=== PATIENT | female | born 1940 | race Caucasian/White ===

== ENCOUNTER 2021-05-22 09:18 | Observation (INO) | payer MEDICARE, BC ==
[2021-05-22] MEDS ORDERED: Sodium Chloride 0.9% 10 ML Syringe FLUSH ONE (10:33)
[2021-05-22] MEDS ORDERED: Iopamidol 755 Mg/ML 100 ML Bottle IV SCH (10:45)
[2021-05-22] MEDS ORDERED: Sodium Chloride 0.9% 80 ML IV SCH (10:45)
--- NOTE | 2021-05-22 11:14 | CT ---
Head wo Cont CLINICAL HISTORY: Stroke COMPARISON: None TECHNIQUE: Transverse scans were obtained from the base of the skull through the vertex without IV contrast on a multislice, multidetector CT scanner. Auto dosage reduction and iterative reconstruction techniques employed. FINDINGS: No focal abnormal parenchymal density is identified. There is no mass effect, hemorrhage, or extraaxial collection. The basal cisterns and sulci over the convexities are prominent. The ventricles are normal for age. IMPRESSION: Age-related atrophy No acute intracranial findings
--- NOTE | 2021-05-22 12:02 | EDM.PDOC ---
ED HPI GENERAL MEDICAL PROBLEM - General Chief Complaint: Neuro Symptoms/Deficits Stated Complaint: STROKE SYMPTOMS Time Seen by Provider: 05/22/21 09:30 Source of Information: Reports: Patient, Family - History of Present Illness INITIAL COMMENTS - FREE TEXT/NARRATIVE: This is a 81-year-old female with limited past medical history who presented concerns of right-sided weakness. She reports that approximately 1 hour prior to ED arrival she had sudden onset feeling of generally being unwell, some tingling on the right side, and noted weakness in the right leg. She sat down for few minutes after the symptoms started and then reports that she had difficulty standing and walking again due to weakness in the leg. She was at a cabin with her family when this occurred, they brought her into the emergency room. There was no noted speech changes. At the time of my evaluation patient is feeling back to her baseline and denies any weakness or paresthesias. She has no headache. No blood thinner use. No history of stroke. No known A. fib. - Related Data Allergies Allergy/AdvReac Type Severity Reaction Status Date / Time No Known Allergies Allergy Verified 05/22/21 09:39 Home Meds: Home Meds Albuterol [Ventolin HFA] 8 gm IH ASDIRECTED 05/22/21 [History] Amatesia 0 cap .ROUTE BID 05/22/21 [History] Levothyroxine Sodium [Synthroid] 125 mcg PO DAILY 05/22/21 [History] Magnesium Oxide [Magnesium] 400 mg PO DAILY 05/22/21 [History] amLODIPine Besylate [Norvasc] 2.5 mg PO DAILY 05/22/21 [History] atorvaSTATin [Lipitor] 20 mg PO BEDTIME 05/22/21 [History] lisinopriL [Lisinopril] 20 mg PO DAILY 05/22/21 [History] Past Medical History HEENT History: Reports: None Cardiovascular History: Reports: Hypertension Respiratory History: Reports: Asthma Gastrointestinal History: Reports: Chronic Constipation, Irritable Bowel Syndrome Neurological History: Reports: None Psychiatric History: Reports: None Endocrine/Metabolic History: Reports: Hypothyroidism Hematologic History: Reports: None Immunologic History: Reports: None Oncologic (Cancer) History: Reports: None Dermatologic History: Reports: None - Infectious Disease History Infectious Disease History: Reports: Chicken Pox, Pertussis (Whooping Cough), Shingles - Past Surgical History HEENT Surgical History: Reports: None GI Surgical History: Reports: Hernia Repair/Other Female Surgical History: Reports: Hysterectomy Social & Family History - Tobacco Use Tobacco Use Status *Q: Former Tobacco User Used Tobacco, but Quit: Yes Month/Year Tobacco Last Used: 45 years - Caffeine Use Caffeine Use: Reports: None - Recreational Drug Use Recreational Drug Use: No ED ROS GENERAL - Review of Systems Review Of Systems: See Below Constitutional: Reports: No Symptoms HEENT: Reports: No Symptoms Respiratory: Reports: No Symptoms Cardiovascular: Reports: No Symptoms Endocrine: Reports: No Symptoms GI/Abdominal: Reports: No Symptoms : Reports: No Symptoms Musculoskeletal: Reports: No Symptoms Skin: Reports: No Symptoms Neurological: Reports: Numbness, Difficulty Walking, Weakness Psychiatric: Reports: No Symptoms Hematologic/Lymphatic: Reports: No Symptoms Immunologic: Reports: No Symptoms ED EXAM, NEURO - Physical Exam Exam: See Below Exam Limited By: No Limitations General Appearance: Alert, No Apparent Distress Ears: Normal External Exam Nose: Normal Inspection Throat/Mouth: Normal Inspection Head Exam: Atraumatic Neck: Normal Inspection Respiratory/Chest: No Respiratory Distress, Lungs Clear Cardiovascular: Regular Rate, Rhythm GI/Abdominal: Soft, Non-Tender Neurological: Alert, Normal Mood/Affect, CN II-XII Intact, Oriented x 3, Other (Speech is fluid. No dysarthria. Cranial nerves II through XII intact. No pronator drift. Finger-nose testing is normal. No lower extremity drift with n ormal strength. Sensation to fine touch is intact throughout the extremities. NIH stroke scale 0) Back Exam: Normal Inspection Extremities: Normal Inspection Psychiatric: Normal Affect, Normal Mood Skin Exam: Warm, Dry #1 Interpretation Rhythm: NSR Hammond: Normal ST-T: Normal QT: Normal Course - Vital Signs Last Recorded V/S: Last Vital Signs Temp 36.6 C 05/22/21 09:45 Pulse 68 05/22/21 11:24 Resp 16 05/22/21 09:45 BP 145/82 H 05/22/21 12:24 Pulse Ox 95 05/22/21 11:24 - Orders/Labs/Meds Orders: Active Orders 24 hr Category Date Time Status Brain wo Cont [MR] Stat Exams 05/22/21 12:46 Ordered EKG 12 Lead [EK] Routine Ther 05/22/21 09:32 Ordered Labs: Laboratory Tests 05/22/21 05/22/21 Range/Units 09:43 09:43 WBC 5.1 (4.5-11.0) K/uL RBC 4.73 (3.30-5.50) M/uL Hgb 14.4 (12.0-15.0) g/dL Hct 45.1 (36.0-48.0) % MCV 95 (80-98) fL MCH 30 (27-31) pg MCHC 32 (32-36) % Plt Count 287 (150-400) K/uL Sodium 137 L (140-148) mmol/L Potassium 4.3 (3.6-5.2) mmol/L Chloride 100 (100-108) mmol/L Carbon Dioxide 29 (21-32) mmol/L Anion Gap 12.3 (5.0-14.0) mmol/L BUN 15 (7-18) mg/dL Creatinine 0.7 (0.6-1.0) mg/dL Est Cr Clr Drug Dosing 48.16 mL/min Estimated GFR (MDRD) > 60 (>60) Glucose 94 (74-106) mg/dL Calcium 9.3 (8.5-10.1) mg/dL Total Bilirubin 0.6 (0.2-1.0) mg/dL AST 29 (15-37) U/L ALT 35 (12-78) U/L Alkaline Phosphatase 99 (46-116) U/L Total Protein 7.2 (6.4-8.2) g/dL Albumin 4.0 (3.4-5.0) g/dL Globulin 3.2 (2.3-3.5) g/dL Albumin/Globulin Ratio 1.3 (1.2-2.2) Meds: Medications Discontinued Medications Generic Name Dose Route Start Last Admin Trade Name Freq PRN Reason Stop Dose Admin Sodium Chloride 80 mls @ 3 mls/sec 05/22/21 10:45 05/22/21 10:54 Normal Saline IV 05/22/21 10:46 3 mls/sec ASDIRECTED DEUCE Administration Iopamidol 100 ml 05/22/21 10:45 05/22/21 10:54 Iopamidol 755 Mg/Ml 100 Ml Bottle IV 05/22/21 10:46 100 ml . DIRECTED DEUCE Administration Sodium Chloride 10 ml 05/22/21 10:33 05/22/21 10:54 Sodium Chloride 0.9% 10 Ml Syringe FLUSH 05/22/21 10:34 10 ml ONETIME ONE Administration - Re-Assessments/Exams Free Text/Narrative Re-Assessment/Exam: 81-year-old female presents with concerns of transient right-sided paresthesias and weakness. On exam here she has normal vitals, is noted to be fully neurologically intact and now asymptomatic with symptoms resolving upon arrival in the ED. She has no history of A. fib or prior stroke. EKG obtained shows normal sinus rhythm. Blood work nonrevealing. CT of the head as well as CTA of the head and neck showed no acute pathology. History is certainly concerning for a TIA. Our plan is to admit her to the hospital for further work-up and management. An MRI has been ordered and she has been signed out to the accepting hospitalist. 05/22/21 13:01 Departure - Departure Time of Disposition: 13:03 Disposition: Admitted As Inpatient 64 Clinical Impression: TIA (transient ischemic attack) - Discharge Information Referrals: PCP,None [Primary Care Provider] - Forms: ED Department Discharge Sepsis Event Note (ED) - Evaluation Sepsis Screening Result: No Definite Risk - Focused Exam Vital Signs: Vital Signs Temp Pulse Resp BP Pulse Ox 05/22/21 12:24 145/82 H 05/22/21 12:09 160/79 H 05/22/21 11:54 140/82 05/22/21 11:24 68 154/86 H 95 05/22/21 11:08 68 179/98 H 99 05/22/21 10:54 184/96 H 05/22/21 10:17 72 170/86 H 100 05/22/21 10:09 160/79 H 05/22/21 09:57 69 169/82 H 05/22/21 09:45 36.6 C 80 16 195/95 H 98 05/22/21 09:30 36.6 C 80 16 195/95 H 98 - My Orders Last 24 Hours: My Active Orders 05/22/21 09:32 EKG 12 Lead [EK] Routine 05/22/21 12:46 Brain wo Cont [MR] Stat - Assessment/Plan Last 24 Hours: My Active Orders 05/22/21 09:32 EKG 12 Lead [EK] Routine 05/22/21 12:46 Brain wo Cont [MR] Stat
--- NOTE | 2021-05-22 12:11 | CT ---
Ang Neck, Ang Head CLINICAL HISTORY: Right-sided weakness TECHNIQUE: Multiple axial images were obtained through the neck with the IV infusion of iodinated contrast. From these images sagittal and coronal reconstructions of the aortic arch and carotids were obtained. NASCET criteria is used. Auto dosage reduction and iterative reconstruction technique employed. FINDINGS: There is some mild atheromatous plaque in the aortic arch. Innominate artery and right subclavian artery have a normal course and caliber. The right vertebral artery is patent. The right common carotid artery is tortuous at its origin. There is moderate been hardening artifact at the region of the aortic bifurcation due to dental amalgam. There is some mild plaque in the right carotid bifurcation. There is some hard plaque at the origin of the right internal carotid artery there may be some mild stenosis which is less than 50%.. There is a focal weblike filling defect across the proximal ICA causing moderate stenosis. This may be an intimal flap. IMPRESSION: Limited study at the carotid bifurcations due to significant streak artifact. Mild stenosis of the right ICA felt to be less than 50% Weblike filling defect across the proximal left ICA. Some of this may be artifact. Moderate stenosis is suggested. This could represent an intimal flap Ang Neck, Ang Head TECHNIQUE: Multiple volume rendered and MIP 3D reconstructions were generated from source images obtained on a spiral scanner before and after intravenous iodinated contrast enhancement Auto dosage reduction and iterative reconstruction techniques employed. FINDINGS: Internal carotid arteries: Normal course and contour Anterior cerebral arteries: Normal course and contour. An anterior communicating artery is not identified Middle cerebral arteries: Mild plaque without significant stenosis Posterior cerebral arteries: Normal course and contour Vertebral/basilar arteries: Normal course and contour. Left vertebral artery is dominant IMPRESSION: Mild plaque No significant stenosis or aneurysm
--- NOTE | 2021-05-22 15:07 | MR ---
Brain wo Cont CLINICAL HISTORY: Right-sided weakness COMPARISON: Current noncontrast head CT TECHNIQUE: Multiple axial, sagittal, and coronal images were obtained on a 1.5 T magnet with multiweighted sequences, FLAIR, and diffusion imaging without contrast. FINDINGS: There is no focal mass lesion. There is a small focus of increased signal in the left parietal lobe on diffusion images including the ADC series. This is increased on T2 and FLAIR images. This low signal on T1. There is no hemmorhage or extraaxial collection. There are scattered T2 hyperintensities in the periventricular and subcortical white matter bilaterally.. The basal cisterns and sulci over the convexities are prominent. The ventricles are normal for age. IMPRESSION: 1 cm area of T2 and FLAIR hyperintensity in the left parietal lobe posteriorly. This also shows increased signal on diffusion images. This likely represents a small subacute ischemic infarct Moderate atrophy
--- NOTE | 2021-05-22 15:28 | MR ---
Ang Head wo Cont CLINICAL HISTORY: Left ICA dissection TECHNIQUE: Multiple 3D images of the intracranial arteries were displayed on a workstation. All images were obtained on a 1.5 Queta Siemens unit. FINDINGS: There are linear defects in both carotid siphons which are relatively symmetric and likely represent some flow artifact. The cartilage have a normal contour. The anterior cerebral arteries are normal in course and contour. An anterior communicating artery is not identified. The middle cerebral arteries have a normal course and contour without filling defects stenosis or vessel cutoff. The posterior cerebral arteries have a normal course and contour. The basilar artery has a normal caliber. The vertebral arteries are patent with the left being dominant. IMPRESSION: There are some linear defects in the carotid siphons which are felt to be flow artifact No stenosis or obvious vessel cut off is identified
[2021-05-22] MEDS ORDERED: Aspirin 81 MG Tab.Chew PO ONE (16:05)
--- NOTE | 2021-05-22 16:11 | PCM.HP.2 ---
H&P History of Present Illness - General Date of Service: 05/22/21 Admit Problem/Dx: Admission Diagnosis/Problem Admission Diagnosis/Problem CVA, Cerebrovascular accident Source of Information: Patient, Family, Provider History Limitations: Reports: No Limitations - History of Present Illness Initial Comments - Free Text/Narative: CC: I thought I was having a stroke HPI: Agueda presents to the emergency room today after an episode of right arm and right leg weakness. Symptoms started abruptly about 1 hour prior to coming to the emergency room. She reported that both the arm and the leg felt numb and more weak to the point that she had to sit down. She did not notice headache or difficulty with speech. She did not report any blurry vision or double vision. She did report a brain fog type sensation that came on after she was in the emergency room for a while but this resolved. Her symptoms did resolve while she was in the emergency room. She currently feels that her strength is back to baseline. She does not have any numbness or tingling. She thinks her sensation is back to normal. She has not ever had a spell like this in the past. She reports that she is very active and has no physical limitations on a normal day. She has had an extensive work-up in the emergency room. CT angiogram of the head and neck did raise some concern for a possible intimal flap in the left internal carotid artery but this was not seen on the MRA of the brain. MRI of the brain did show a small left-sided parietal infarct. Patient will be admitted for expedited work-up of CVA. - Related Data Allergies/Adverse Reactions: Allergies Allergy/AdvReac Type Severity Reaction Status Date / Time No Known Allergies Allergy Verified 05/22/21 09:39 Home Medications: Home Meds Albuterol [Ventolin HFA] 8 gm IH ASDIRECTED 05/22/21 [History] Amatesia 0 cap .ROUTE BID 05/22/21 [History] Levothyroxine Sodium [Synthroid] 125 mcg PO DAILY 05/22/21 [History] Magnesium Oxide [Magnesium] 400 mg PO DAILY 05/22/21 [History] amLODIPine Besylate [Norvasc] 2.5 mg PO DAILY 05/22/21 [History] atorvaSTATin [Lipitor] 20 mg PO BEDTIME 05/22/21 [History] lisinopriL [Lisinopril] 20 mg PO DAILY 05/22/21 [History] Past Medical History HEENT History: Reports: None Cardiovascular History: Reports: Hypertension Respiratory History: Reports: Asthma Gastrointestinal History: Reports: Chronic Constipation, Irritable Bowel Syndrome Neurological History: Reports: None Psychiatric History: Reports: None Endocrine/Metabolic History: Reports: Hypothyroidism Hematologic History: Reports: None Immunologic History: Reports: None Oncologic (Cancer) History: Reports: None Dermatologic History: Reports: None - Infectious Disease History Infectious Disease History: Reports: Chicken Pox, Pertussis (Whooping Cough), Shingles - Past Surgical History HEENT Surgical History: Reports: None GI Surgical History: Reports: Hernia Repair/Other Female Surgical History: Reports: Hysterectomy Social & Family History - Family History Neurological: Reports: CVA (mother in her 90's) - Tobacco Use Tobacco Use Status *Q: Former Tobacco User Used Tobacco, but Quit: Yes Month/Year Tobacco Last Used: 45 years - Caffeine Use Caffeine Use: Reports: None - Alcohol Use Alcohol Use History: No - Recreational Drug Use Recreational Drug Use: No H&P Review of Systems - Review of Systems: Review Of Systems: See Below Free Text/Narrative: A complete 12 point review of systems was obtained. Pertinent positives and negatives are noted in the history of present illness. All other systems were reviewed and were negative except as noted. Exam - Exam Exam: See Below - Vital Signs Vital Signs: Last Vital Signs Temp 36.7 C 05/22/21 15:13 Pulse 69 05/22/21 15:13 Resp 16 05/22/21 09:45 BP 140/73 05/22/21 15:13 Pulse Ox 100 05/22/21 15:13 Weight: 53.4 kg - Exam Quality Assessment: No: Supplemental Oxygen General: Alert, Oriented, Cooperative. No: Mild Distress HEENT: Conjunctiva Clear, EOMI, Pupils Equal Neck: Supple, Trachea Midline Lungs: Clear to Auscultation, Normal Respiratory Effort Cardiovascular: Regular Rate, Regular Rhythm. No: Systolic Murmur, Gallop/S3 GI/Abdominal Exam: Normal Bowel Sounds, Soft, Non-Tender, No Distention Back Exam: Normal Inspection, Full Range of Motion Extremities: No Pedal Edema. No: Increased Warmth Peripheral Pulses: 2+: Dorsalis Pedis (L), Dorsalis Pedis (R) Skin: Warm, Dry Neurological: Strength Equal Bilateral, Normal Speech, Normal Tone. No: Focal Deficit Neuro Extensive - Mental Status: Alert, Oriented x3, Nl Response to Commands Neuro Extensive - Motor, Sensory, Reflexes: No: Dysarthria, Abnormal Motor, Tremor Psychiatric: Alert, Normal Affect - Patient Data Lab Results Last 24 hrs: Laboratory Results - last 24 hr 05/22/21 05/22/21 Range/Units 09:43 09:43 WBC 5.1 (4.5-11.0) K/uL RBC 4.73 (3.30-5.50) M/uL Hgb 14.4 (12.0-15.0) g/dL Hct 45.1 (36.0-48.0) % MCV 95 (80-98) fL MCH 30 (27-31) pg MCHC 32 (32-36) % Plt Count 287 (150-400) K/uL Sodium 137 L (140-148) mmol/L Potassium 4.3 (3.6-5.2) mmol/L Chloride 100 (100-108) mmol/L Carbon Dioxide 29 (21-32) mmol/L Anion Gap 12.3 (5.0-14.0) mmol/L BUN 15 (7-18) mg/dL Creatinine 0.7 (0.6-1.0) mg/dL Est Cr Clr Drug Dosing 48.16 mL/min Estimated GFR (MDRD) > 60 (>60) Glucose 94 (74-106) mg/dL Calcium 9.3 (8.5-10.1) mg/dL Total Bilirubin 0.6 (0.2-1.0) mg/dL AST 29 (15-37) U/L ALT 35 (12-78) U/L Alkaline Phosphatase 99 (46-116) U/L Total Protein 7.2 (6.4-8.2) g/dL Albumin 4.0 (3.4-5.0) g/dL Globulin 3.2 (2.3-3.5) g/dL Albumin/Globulin Ratio 1.3 (1.2-2.2) Result Diagrams: 05/22/21 09:43 05/22/21 09:43 Imaging Impressions Last 24 hrs: All of the images below were personally reviewed and the radiologist inter pretation was noted CT brain-mild atrophy but no acute findings to suggest stroke CT angiogram of head and neck-no significant stenoses were noted. There was mention of a weblike filling defect in the left internal carotid artery with some potential concern for an intimal flap. No obvious evidence for stroke. MRI of the brain-there was evidence for a small left parietal infarct but no other findings other than mild atrophy MRA of the brain-no evidence for large vessel occlusion. No abnormalities of the left internal carotid were noted. Sepsis Event Note - Evaluation Sepsis Screening Result: No Definite Risk - Focused Exam Vital Signs: Vital Signs Temp Pulse Resp BP Pulse Ox 05/22/21 15:13 36.7 C 69 140/73 100 05/22/21 12:24 145/82 H 05/22/21 12:09 160/79 H 05/22/21 11:54 140/82 05/22/21 11:24 68 154/86 H 95 05/22/21 11:08 68 179/98 H 99 05/22/21 10:54 184/96 H 05/22/21 10:17 72 170/86 H 100 05/22/21 10:09 160/79 H 05/22/21 09:57 69 169/82 H 05/22/21 09:45 36.6 C 80 16 195/95 H 98 05/22/21 09:30 36.6 C 80 16 195/95 H 98 *Q Meaningful Use (ADM) - VTE Risk Assess *Q Each Risk Factor Represents 1 Point: None Total Score 1 Point Risk Factors: 0 Each Risk Factor Represents 2 Points: None Total Score 2 Point Risk Factors: 0 Each Risk Factor Represents 3 Points: Age 75 Years or Greater Total Score 3 Point Risk Factors: 3 Each Risk Factor Represents 5 Points: None Total Score 5 Point Risk Factors: 0 Venous Thromboembolism Risk Factor Score *Q: 3 - Problem List (1) CVA (cerebral vascular accident) SNOMED Code(s): 012557289 ICD Code: I63.9 - CEREBRAL INFARCTION, UNSPECIFIED Status: Acute Current Visit: Yes Qualifiers: CVA mechanism: thrombosis Precerebral and cerebral artery: unspecified cere bral artery Qualified Code(s): I63.30 - Cerebral infarction due to thrombosis of unspecified cerebral artery (2) Hypertension, essential SNOMED Code(s): 66300239 ICD Code: I10 - ESSENTIAL (PRIMARY) HYPERTENSION Status: Chronic Current Visit: Yes (3) Hypercholesterolemia SNOMED Code(s): 91632273 ICD Code: E78.00 - PURE HYPERCHOLESTEROLEMIA, UNSPECIFIED Status: Chronic Current Visit: Yes Problem List Initiated/Reviewed/Updated: Yes Orders Last 24hrs: Active Orders 24 hr Category Date Time Status Patient Status Manage Transfer [TRANSFER] Routine ADT 05/22/21 16:06 Ordered Resuscitation Status Routine Resus Stat 05/22/21 16:07 Ordered EKG 12 Lead [EK] Routine Ther 05/22/21 09:32 Ordered Assessment/Plan Comment:: ASSESSMENT AND PLAN - Left parietal CVA -small area of infarct in the left parietal area which would fit with the right arm and leg weakness. Strength is back to normal at this time. No history of vascular disease. Excellent functional status at baseline. Suspect thrombosis but cannot rule out embolic. CT angiogram and MRA of the brain did not show large vessel stenosis or occlusion. -Aspirin daily -Continue medical management including blood pressure and cholesterol -Cholesterol level in the morning -Cardiac monitoring -Echo in the morning Essential hypertension-stable so far. -Continue home medications Hypercholesterolemia-started on statin 2 months ago. -Check cholesterol panel in the morning Maintenance issues - -DVT prophylaxis-mechanical -GI prophylaxis-not indicated -Nutrition-regular -Hylton catheter-not indicated CODE STATUS -full code Admission justification -this patient will be admitted to observation for to expedite work-up for CVA. Disposition -I anticipate discharge home after the hospital stay Primary care physician -[facility] hSah M.D. - Mortality Measure Prognosis:: Good
[2021-05-22] MEDS ORDERED: LORazepam 2 MG/ML SDV IVPUSH PRN (16:44)
[2021-05-22] MEDS ORDERED: Ondansetron 4 MG/2 ML SDV IV PRN (16:44)
[2021-05-22] MEDS ORDERED: Melatonin 3 MG Tab PO PRN (16:44)
[2021-05-22] MEDS ORDERED: Polyethylene Glycol 3350 Powder 17 GM Packet PO PRN (16:44)
[2021-05-22] MEDS ORDERED: Magnesium Hydroxide 400 MG/5 ML Susp 30 ML Cup PO PRN (16:44)
[2021-05-22] MEDS ORDERED: Ondansetron 4 MG Tab.DIS PO PRN (16:44)
[2021-05-22] MEDS ORDERED: Acetaminophen 325 MG Tab PO PRN (16:44)
[2021-05-22] MEDS ORDERED: Albuterol 8 GM Inhaler INH PRN (17:25)
[2021-05-23] MEDS ORDERED: Levothyroxine 100 MCG, Levothyroxine 25 MCG PO SCH ×2 (07:30)
[2021-05-23] MEDS ORDERED: Non-Formulary Medication 1 Each (Levothyroxine Sodium [Synthroid] 125 MCG Tablet) PO SCH (09:00)
[2021-05-23] MEDS ORDERED: amLODIPine 5 MG Tab PO SCH (09:00)
[2021-05-23] MEDS ORDERED: Lisinopril 20 MG Tab PO SCH (09:00)
[2021-05-23] MEDS ORDERED: atorvaSTATin 20 MG Tab PO SCH (09:00)
[2021-05-23] MEDS ORDERED: Magnesium Oxide 400 MG Tab PO SCH (09:00)
[2021-05-23] MEDS ORDERED: Aspirin 81 MG Tab.EC PO SCH (09:00)
--- NOTE | 2021-05-23 10:32 | PCM.DCSUM1 ---
Discharge Summary - Hospital Course Brief History: 81-year-old female with history of essential hypertension and hypercholesterolemia who presented with right-sided arm and leg weakness. She was admitted for management of a small left-sided CVA. Diagnosis: Stroke: Yes Modified Centre Scale: No Symptoms at All Modified Centre Scale Score: 0 - Discharge Data Discharge Date: 05/23/21 Discharge Disposition: Home, Self-Care 01 Condition: Good - Referral to Home Health Primary Care Physician: PCP None - Discharge Diagnosis/Problem(s) (1) CVA (cerebral vascular accident) SNOMED Code(s): 333128305 ICD Code: I63.9 - CEREBRAL INFARCTION, UNSPECIFIED Status: Acute Qualifiers: CVA mechanism: thrombosis Precerebral and cerebral artery: unspecified ce rebral artery Qualified Code(s): I63.30 - Cerebral infarction due to thrombosis of unspecified cerebral artery (2) Hypertension, essential SNOMED Code(s): 95074313 ICD Code: I10 - ESSENTIAL (PRIMARY) HYPERTENSION Status: Chronic (3) Hypercholesterolemia SNOMED Code(s): 07488511 ICD Code: E78.00 - PURE HYPERCHOLESTEROLEMIA, UNSPECIFIED Status: Chronic - Patient Summary/Data Hospital Course: Agueda presented to the emergency room after an episode of right arm and right leg weakness. Symptoms had resolved by the time she got to the emergency room and neurologic exam was normal. Labs were unremarkable. Noncontrast head CT was unremarkable. CT angiogram did suggest a possible filling defect in the left internal carotid artery but MRI angiogram did not show this. MRI of the brain did document a small left parietal infarct. Patient was admitted to the hospital for observation overnight. There were no abnormalities on telemetry. An echocardiogram was obtained the morning of discharge. This was unremarkable. Patient feels well and has no weakness on the right side of her body. No paresthesias. She feels well. We did check her cholesterol numbers which were excellent. Total cholesterol was 130 and her HDL was 71. We did add an aspirin to her medication regimen but otherwise did not make any changes. She is stable and safe for discharge home and will be following up with her primary care. - Patient Instructions Diet: Regular Diet as Tolerated Activity: As Tolerated Driving: May Drive Today Showering/Bathing: May Shower Other/Special Instructions: 1. You were in the hospital for management of a small left-sided parietal stroke. This resulted in temporary weakness of the right arm and right leg. Your symptoms all appear to have resolved at this time. We did perform extensive work-up on the blood vessels inside your head and neck did not find any significant blockages. Testing included both MRI and CT angiograms. Your cholesterol numbers are excellent and we do not need to make any changes to your statin medication. I do recommend that you start taking aspirin 81 mg once daily in the morning to help reduce your risk of future strokes. Since you do not have any remaining symptoms there are no restrictions at this time. 2. Continue your usual home medications as previously prescribed. 3. Please seek immediate medical attention if you develop difficulty with speech or if you have weakness involving 1 side of your body similar to your symptoms prior to the emergency room visit. - Discharge Plan *PRESCRIPTION DRUG MONITORING PROGRAM REVIEWED*: Not Applicable *COPY OF PRESCRIPTION DRUG MONITORING REPORT IN PATIENT CARLOS: Not Applicable Prescriptions/Med Rec: Aspirin [Halfprin] 81 mg PO DAILY #30 tab.ec Home Medications: Home Meds Albuterol [Ventolin HFA] 8 gm IH ASDIRECTED 05/22/21 [History] Amatesia 0 cap .ROUTE BID 05/22/21 [History] Levothyroxine Sodium [Synthroid] 125 mcg PO DAILY 05/22/21 [History] Magnesium Oxide [Magnesium] 400 mg PO DAILY 05/22/21 [History] amLODIPine Besylate [Norvasc] 2.5 mg PO DAILY 05/22/21 [History] atorvaSTATin [Lipitor] 20 mg PO BEDTIME 05/22/21 [History] lisinopriL [Lisinopril] 20 mg PO DAILY 05/22/21 [History] Aspirin [Halfprin] 81 mg PO DAILY #30 tab.ec 05/23/21 [Rx] Oxygen Therapy Mode: Room Air Patient Handouts: Ischemic Stroke, [id number] Referrals: PCP,None [Primary Care Provider] - (Follow-up with your primary care provider in 1 to 2 weeks to see how you are feeling after your small stroke) - Discharge Summary/Plan Comment DC Time >30 min.: No Total # of Minutes for Discharge Time: 20 - Patient Data Vitals - Most Recent: Last Vital Signs Temp 36.8 C 05/23/21 07:58 Pulse 72 05/23/21 07:58 Resp 18 05/23/21 07:58 BP 167/85 H 05/23/21 07:58 Pulse Ox 97 05/23/21 07:58 Weight - Most Recent: 53.4 kg I&O - Last 24 hours: Intake & Output 05/22/21 05/23/21 05/23/21 22:59 06:59 14:59 Intake Total 400 600 Balance 400 600 Lab Results - Last 24 hrs: Laboratory Results - last 24 hr 05/22/21 05/23/21 Range/Units 09:43 04:10 Sodium 137 L (140-148) mmol/L Potassium 4.3 (3.6-5.2) mmol/L Chloride 100 (100-108) mmol/L Carbon Dioxide 29 (21-32) mmol/L Anion Gap 12.3 (5.0-14.0) mmol/L BUN 15 (7-18) mg/dL Creatinine 0.7 (0.6-1.0) mg/dL Est Cr Clr Drug Dosing 48.16 mL/min Estimated GFR (MDRD) > 60 (>60) Glucose 94 (74-106) mg/dL Calcium 9.3 (8.5-10.1) mg/dL Total Bilirubin 0.6 (0.2-1.0) mg/dL AST 29 (15-37) U/L ALT 35 (12-78) U/L Alkaline Phosphatase 99 (46-116) U/L Total Protein 7.2 (6.4-8.2) g/dL Albumin 4.0 (3.4-5.0) g/dL Globulin 3.2 (2.3-3.5) g/dL Albumin/Globulin Ratio 1.3 (1.2-2.2) Triglycerides 48 (15-150) mg/dL Cholesterol 130 (0-200) mg/dL LDL Cholesterol Direct 50 (0-100) mg/dL HDL Cholesterol 71 H (40-60) mg/dL Med Orders - Current: Current Medications Acetaminophen (Acetaminophen 325 Mg Tab) 650 mg PO Q4H PRN PRN Reason: Pain (Mild 1-3)/fever Albuterol (Albuterol 8 Gm Inhaler) 0 gm INH Q4H PRN PRN Reason: Shortness of Breath Amlodipine Besylate (Amlodipine 5 Mg Tab) 2.5 mg PO DAILY DEUCE Aspirin (Aspirin 81 Mg Tab.Ec) 81 mg PO DAILY DEUCE Atorvastatin Calcium (Atorvastatin 20 Mg Tab) 20 mg PO DAILY COUNT INCLUDES THE [facility] Levothyroxine Sodium 100 mcg/ (Levothyroxine Sodium 25 mcg) 125 mcg PO ACBREAKFAST COUNT INCLUDES THE [facility] Lisinopril (Lisinopril 20 Mg Tab) 20 mg PO DAILY COUNT INCLUDES THE [facility] Lorazepam (Lorazepam 2 Mg/Ml Sdv) 0.5 mg IVPUSH Q4H PRN PRN Reason: Nausea/Vomiting Magnesium Hydroxide (Magnesium Hydroxide 400 Mg/5 Ml Susp 30 Ml Cup) 30 ml PO Q12H PRN PRN Reason: Constipation Magnesium Oxide (Magnesium Oxide 400 Mg Tab) 400 mg PO DAILY COUNT INCLUDES THE [facility] Melatonin (Melatonin 3 Mg Tab) 9 mg PO BEDTIME PRN PRN Reason: Sleep Ondansetron HCl (Ondansetron 4 Mg/2 Ml Sdv) 4 mg IV Q6H PRN PRN Reason: Nausea/Vomiting Ondansetron HCl (Ondansetron 4 Mg Tab.Dis) 4 mg PO Q6H PRN PRN Reason: Nausea able to take PO Polyethylene Glycol (Polyethylene Glycol 3350 Powder 17 Gm Packet) 17 gm PO DAILY PRN PRN Reason: Constipation Senna/Docusate Sodium (Docusate Sodium/Sennosides 50-8.6 Mg Tab) 1 tab PO BID PRN PRN Reason: Constipation Discontinued Medications Aspirin (Aspirin 81 Mg Tab.Chew) 81 mg PO ONETIME ONE Stop: 05/22/21 16:06 Last Admin: 05/22/21 17:10 Dose: 81 mg Documented by: Sodium Chloride (Normal Saline) 80 mls @ 3 mls/sec IV ASDIRECTED COUNT INCLUDES THE [facility] Stop: 05/22/21 10:46 Last Admin: 05/22/21 10:54 Dose: 3 mls/sec Documented by: Iopamidol (Iopamidol 755 Mg/Ml 100 Ml Bottle) 100 ml IV . DIRECTED COUNT INCLUDES THE [facility] Stop: 05/22/21 10:46 Last Admin: 05/22/21 10:54 Dose: 100 ml Documented by: Sodium Chloride (Sodium Chloride 0.9% 10 Ml Syringe) 10 ml FLUSH ONETIME ONE Stop: 05/22/21 10:34 Last Admin: 05/22/21 10:54 Dose: 10 ml Documented by:
== END 2021-05-23 10:45 | disposition home or self-care (01) ==
LOC: JP.ED 09:18 → JP.ICU 16:06
PROVIDERS: ADMIT Internal Medicine; ATTEND Internal Medicine
DX: I63.30 Cerebral infarction due to thrombosis of unspecified cerebral artery (principal); G45.9 Transient cerebral ischemic attack, unspecified; I10 Essential (primary) hypertension; E78.00 Pure hypercholesterolemia, unspecified; E03.9 Hypothyroidism, unspecified; J45.909 Unspecified asthma, uncomplicated; Z87.891 Personal history of nicotine dependence; Z79.82 Long term (current) use of aspirin; Z79.890 Hormone replacement therapy; Z79.899 Other long term (current) drug therapy
CPT/HCPCS: 36415; 70450; 70496; 70498; 70544; 70551; 80053; 80061; 85027; 93005; 93306; 99285; A9270; G0378; Q9967